=== PATIENT | male | born 1985 | race Caucasian/White ===

== ENCOUNTER 2022-09-03 15:54 | Emergency (ER) | payer BC, MEDICARE ==
[~2022-09-03] VITALS: Ht 175.3 cm; Wt 122.5 kg
[~2022-09-03 15:54] MED LIST: ALPR.25T PO; DANA200C PO; ESOM20SU PO; FLUO10CA19 PO; IBP800T PO; [UNRECOGNIZED DRUG - OTHER]; [UNRECOGNIZED DRUG - OTHER]; [UNRECOGNIZED DRUG - OTHER] IV
[2022-09-03] MEDS ORDERED: KETOROLAC 15 MG/ML VIAL IVP ONE (16:15)
--- NOTE | 2022-09-03 16:21 | ED Chest Pain ---
General Chief Complaint: Chest Pain Stated Complaint: CHEST PAIN Source: patient Exam Limitations: no limitations History of Present Illness Date Seen by Provider: Sep 03, 2022 Time Seen by Provider: 14:01 Initial Comments 36-year-old male presents with left upper chest pain starting 1 hour ago while walking. Reports associated shortness of air. Reports pain radiates to left upper back, neck, shoulder. States pain is worse when lifting his arm, left trapezius is tender to palpation. States he was in [place] today with his fianc shopping and visiting a friend. Reports he had several episodes of becoming winded, short of air, and dizzy while shopping. Denies cardiac history, diabetes, hypertension, and hyperlipidemia. Does not smoke. States grandparents have history of IL, unsure of age when MIs occurred. Reports history of GERD, hereditary angioedema, and panic attacks. States he has never had chest pain with panic attack, does not think this is a panic attack. Did not try to take his prescribed Xanax before coming to the ER. Denies fever/chills, abdominal pain, nausea, vomiting, diarrhea. Last dose of COVID-vaccine was a year ago. Timing/Duration: 1 hour Severity/Quality: moderate Location: other (left chest) Radiation: neck, shoulders, back (left upper back) Prior CP/Workup: no prior chest pain Allergies and Home Medications Allergies Coded Allergies: BEBA Inhibitors (Unverified Allergy, 09/07/12) morphine (Unverified Allergy, 09/07/12) Patient Home Medication List Home Medication List Reviewed: Yes Alprazolam (Xanax) 0.25 Mg Tablet, 1 TAB PO TID PRN, (Reported) Entered as Reported by: YESENIA DIAZ on 09/07/1241 C1 Esterase Inhibitor (Berinert) 500 Unit Vial, 500 UNIT IV, (Reported) Entered as Reported by: YESENIA DIAZ on 09/07/1241 Danazol (Danazol) 200 Mg Capsule, 200 MG PO, (Reported) Entered as Reported by: YESENIA DIAZ on 09/07/1241 Esomeprazole Mag Trihydrate (Nexium) 20 Mg Suspdr.pkt, 20 MG PO, (Reported) Entered as Reported by: YESENIA DIAZ on 09/07/1241 Fluoxetine Hcl (Fluoxetine Hcl) 10 Mg Capsule, 1 EACH PO DAILY, (Reported) Entered as Reported by: YESENIA DIAZ on 09/07/1241 Ibuprofen (Motrin) 800 Mg Tab, 800 MG PO Q8HR PRN Prescribed by: TATA CHENG on 09/07/12214 [calbator] , (Reported) Entered as Reported by: YESENIA DIAZ on 09/07/1241 [verazir] , (Reported) Entered as Reported by: YESENIA DIAZ on 09/07/1241 Review of Systems Review of Systems Constitutional: see HPI Past Lcrurpg-Ggwrwb-Oregig Hx Patient Social History Tobacco Use?: No Past Medical History Gastroesophageal Reflux Anxiety Physical Exam Vital Signs Vital Signs - First Documented 09/03/22 15:56 Temp 36.5 Pulse 99 Resp 19 B/P (MAP) 150/89 (109) O2 Delivery Room Air Capillary Refill : Height, Weight, BMI Height: '" Weight: lbs. oz. kg; BMI Method: General Appearance: WD/WN, Mild Distress Neck: Full Range of Motion, Normal Inspection, Non Tender, Supple Respiratory: Chest Non Tender, Lungs Clear, Normal Breath Sounds, No Accessory Muscle Use, No Respiratory Distress Cardiovascular: Regular Rate, Rhythm, No Edema, No Gallop, No JVD, No Murmur Extremity: Normal Inspection, Normal Range of Motion, Other (pain in chest worsens with arm movement) Neurologic/Psychiatric: Alert, Oriented x3, Normal Mood/Affect Skin: Normal Color, Warm/Dry Progress/Results/Core Measures Results/Orders Lab Results Laboratory Tests Test 09/03/22 16:15 09/03/22 17:39 09/03/22 17:49 Range/Units White Blood Count 6.0 4.3-11.0 10^3/uL Red Blood Count 4.42 4.30-5.52 10^6/uL Hemoglobin 13.1 L 13.3-17.7 g/dL Hematocrit 39 L 40-54 % Mean Corpuscular Volume 88 80-99 fL Mean Corpuscular Hemoglobin 30 25-34 pg Mean Corpuscular Hemoglobin Concent 34 32-36 g/dL Red Cell Distribution Width 13.2 10.0-14.5 % Platelet Count 220 130-400 10^3/uL Mean Platelet Volume 10.4 9.0-12.2 fL Immature Granulocyte % (Auto) 0 % Neutrophils (%) (Auto) 48 42-75 % Lymphocytes (%) (Auto) 39 12-44 % Monocytes (%) (Auto) 10 0-12 % Eosinophils (%) (Auto) 2 0-10 % Basophils (%) (Auto) 1 0-10 % Neutrophils # (Auto) 2.9 1.8-7.8 10^3/uL Lymphocytes # (Auto) 2.4 1.0-4.0 10^3/uL Monocytes # (Auto) 0.6 0.0-1.0 10^3/uL Eosinophils # (Auto) 0.1 0.0-0.3 10^3/uL Basophils # (Auto) 0.0 0.0-0.1 10^3/uL Immature Granulocyte # (Auto) 0.0 0.0-0.1 10^3/uL Prothrombin Time 13.3 12.2-14.7 SEC INR Comment 1.0 0.8-1.4 Activated Partial Thromboplast Time 30 24-35 SEC D-Dimer < 0.27 0.00-0.49 UG/ML Sodium Level 138 135-145 MMOL/L Potassium Level 3.6 3.6-5.0 MMOL/L Chloride Level 106 98-107 MMOL/L Carbon Dioxide Level 20 L 21-32 MMOL/L Anion Gap 12 5-14 MMOL/L Blood Urea Nitrogen 11 7-18 MG/DL Creatinine 0.86 0.60-1.30 MG/DL Estimat Glomerular Filtration Rate 115 BUN/Creatinine Ratio 13 Glucose Level 134 H 70-105 MG/DL Calcium Level 8.8 8.5-10.1 MG/DL Corrected Calcium 9.0 8.5-10.1 MG/DL Magnesium Level 1.7 1.6-2.4 MG/DL Total Bilirubin 0.3 0.1-1.0 MG/DL Aspartate Amino Transf (AST/SGOT) 22 5-34 U/L Alanine Aminotransferase (ALT/SGPT) 30 0-55 U/L Alkaline Phosphatase 61 40-136 U/L Myoglobin 41.1 10.0-92.0 NG/ML Troponin I < 0.028 < 0.028 <0.028 NG/ML B-Type Natriuretic Peptide < 10.0 <100.0 PG/ML Total Protein 6.8 6.4-8.2 GM/DL Albumin 3.8 3.2-4.5 GM/DL Influenza Type A (RT-PCR) Not Detected Not Detecte Influenza Type B (RT-PCR) Not Detected Not Detecte SARS-CoV-2 RNA (RT-PCR) Not Detected Not Detecte My Orders Orders - CHULA WILKINS HEEL TRIMMER Cbc With Automated Diff (09/03/22 16:10) Magnesium (09/03/22 16:10) Chest 1 View, Ap/Pa Only (09/03/22 16:10) Comprehensive Metabolic Panel (09/03/22 16:10) Myoglobin Serum (09/03/22 16:10) Protime With Inr (09/03/22 16:10) Partial Thromboplastin Time (09/03/22 16:10) Monitor-Rhythm Ecg Trace Only (09/03/22 16:10) Ed Iv/Invasive Line Start (09/03/22 16:10) Troponin I Potter (09/03/22 16:10) Ketorolac Injection (Toradol Injection) (09/03/22 16:15) Bnp Antoine (09/03/22 16:40) Covid 19 Inhouse Test (09/03/22 16:40) Influenza A And B By Pcr (09/03/22 16:40) Fibrin Degradation Products (09/03/22 16:43) Fentanyl Inj (Sublimaze Injection) (09/03/22 17:45) Troponin I Antoine (09/03/22 17:39) Medications Given in ED Current Medications Medications Dose Ordered Sig/Warren Route Start Time Stop Time Status Last Admin Dose Admin Fentanyl Citrate 50 mcg ONCE ONCE IVP 09/03/22 17:45 09/03/22 17:46 DC 09/03/22 17:42 50 MCG Ketorolac Tromethamine 15 mg ONCE ONCE IVP 09/03/22 16:15 09/03/22 16:16 DC 09/03/22 16:28 15 MG Vital Signs/I&O 09/03/22 15:56 Temp 36.5 Pulse 99 Resp 19 B/P (MAP) 150/89 (109) O2 Delivery Room Air Progress Progress Note #1: Time: 14:10 Progress Note Patient seen and evaluated, resting on bed, mild distress. Based on exam and symptoms, differential diagnosis includes IL, pericarditis/myocarditis, PE, pneumonia, pleuritis, musculoskeletal pain. Cardiopulmonary work-up initiated. Progress Note #2: Time: 16:30 Progress Note Chest x-ray interpreted, heart appears enlarged, possible vascular congestion. Waiting on official radiology read. BNP added on. Progress Note #3: Time: 17:40 Progress Note Lab results reviewed, CBC grossly normal, slightly decreased hemoglobin and hematocrit. CMP grossly normal, elevated glucose at 134. Troponin less than 0.028, D-dimer less than 0.27, D-dimer less than 10, coags grossly normal. Discussed lab results with patient. Will repeat troponin at 6 PM, 3 hours post onset of chest pain. Patient denies relief with Toradol, fentanyl ordered. Progress Note #4: Time: 18:28 Progress Note Second troponin less than 0.028. Test results discussed with patient. Patient agreeable to discharge. Return precautions provided. Initial ECG Impression Date: Sep 03, 2022 Initial ECG Impression Time: 16:02 Initial ECG Rate: 94 Initial ECG Rhythm: Normal Sinus Initial ECG Intervals: Normal Initial ECG Impression: Normal Initial ECG Comparisson: No Previous ECG Available Diagnostic Imaging Diagonstic Imaging: Xray Plain Films/CT/US/NM/MRI: chest Comments [facility]. [place], [place] NAME: MARLEEN CRAVEN [facility] REC#: [id number] PT STATUS: REG ER : 1985 PHYSICIAN: CHULA WILKINS APRN ADMIT DATE: 09/03/22/ER Signed Date of Exam:09/03/22 CHEST 1 VIEW, AP/PA ONLY INDICATION: Chest pain. TIME OF EXAM: 4:23 PM. COMPARISON: No prior studies are available for comparison. FINDINGS: The heart size is normal. The pulmonary vascularity is unremarkable. The lungs are clear. No infiltrate, effusion or pneumothorax is detected. IMPRESSION: No acute cardiopulmonary process is detected. Dictated by: Dictated on workstation # [id number] Dict: 09/03/22 1634 Trans: 09/03/22 1642 PJ [id number] Interpreted by: DAVE ROBERSON MD Electronically signed by: DAVE ROBERSON MD 09/03/22 164 Departure Impression Primary Impression: Chest pain Qualified Codes: R07.9 - Chest pain, unspecified Disposition: 01 HOME, SELF-CARE Condition: Stable Departure-Patient Inst. Referrals: NO,LOCAL PHYSICIAN (PCP/Family) Primary Care Physician Patient Instructions: Chest Pain That Is Not Caused by the Heart (DC) Add. Discharge Instructions: Follow-up with primary. Return for crushing chest pain, chest pain with nausea/vomiting, shortness of breath, sweating, or any other new, concerning, or worsening symptoms. All discharge instructions reviewed with patient and/or family. Voiced understanding. CHULA WILKINS APRN Sep 03, 2022 16:21
[2022-09-03 16:25] LABS: BASOPHILS % (AUTO) 1 % (0-10); EOSINOPHILS # (AUTO) 0.1 10^3/uL (0.0-0.3); EOSINOPHILS % (AUTO) 2 % (0-10); HEMATOCRIT 39 % (40-54); HEMOGLOBIN 13.1 g/dL (13.3-17.7); LYMPHOCYTES # (AUTO) 2.4 10^3/uL (1.0-4.0); LYMPHOCYTES % (AUTO) 39 % (12-44); MEAN CORPUSCULAR HEMOGLOBIN 30 pg (25-34); MEAN CORPUSCULAR HGB CONC 34 g/dL (32-36); MEAN CORPUSCULAR VOLUME 88 fL (80-99); MEAN PLATELET VOLUME 10.4 fL (9.0-12.2); MONOCYTES # (AUTO) 0.6 10^3/uL (0.0-1.0); MONOCYTES % (AUTO) 10 % (0-12); NEUTROPHILS # (AUTO) 2.9 10^3/uL (1.8-7.8); NEUTROPHILS % (AUTO) 48 % (42-75); PLATELET COUNT 220 10^3/uL (130-400)
[2022-09-03 16:36] LABS: ALBUMIN 3.8 GM/DL (3.2-4.5)
--- NOTE | 2022-09-03 16:36 | Diagnostic Imaging Report ---
INDICATION: Chest pain. TIME OF EXAM: 4:23 PM. COMPARISON: No prior studies are available for comparison. FINDINGS: The heart size is normal. The pulmonary vascularity is unremarkable. The lungs are clear. No infiltrate, effusion or pneumothorax is detected. IMPRESSION: No acute cardiopulmonary process is detected. Dictated by: Dictated on workstation # [id number]
[2022-09-03 16:37] LABS: POTASSIUM 3.6 MMOL/L (3.6-5.0)
[2022-09-03 16:38] LABS: CALCIUM 8.8 MG/DL (8.5-10.1); PROTHROMBIN TIME PATIENT 13.3 SEC (12.2-14.7)
[2022-09-03 16:39] LABS: TOTAL PROTEIN 6.8 GM/DL (6.4-8.2)
[2022-09-03 16:41] LABS: BILIRUBIN,TOTAL 0.3 MG/DL (0.1-1.0)
[2022-09-03 16:43] LABS: CREATININE SERUM 0.86 MG/DL (0.60-1.30)
[2022-09-03 16:45] LABS: MAGNESIUM 1.7 MG/DL (1.6-2.4)
[2022-09-03] MEDS ORDERED: fentaNYL INJ 100 MCG/2 ML AMP IVP ONE (17:45)
[2022-09-03 18:40] VITALS: BP 129/86
== END 2022-09-03 18:41 | disposition home or self-care (01) ==
LOC: EDUNIT# 15:54 → ER 15:56
DX: R07.89 Other chest pain (principal); R73.9 Hyperglycemia, unspecified; Z88.5 Allergy status to narcotic agent; Z20.822 Contact with and (suspected) exposure to COVID-19
CPT/HCPCS: 36415; 71045; 80053; 83735; 83874; 83880; 84484; 85025; 85379; 85610; 85730; 87636; 93005; 93041